=== PATIENT | male | born 1980 | race Caucasian/White ===

== ENCOUNTER 2022-08-24 17:45 | Emergency (ER) | payer OTHER ==
[2022-08-24 18:06] VITALS: BP 111/72
--- NOTE | 2022-08-24 19:36 | ED Physician Documentation ---
PD HPI HEENT - Stated complaint Stated Complaint: R EYE PX - Chief complaint Chief Complaint: Heent - History obtained from History obtained from: Patient - Additional information Additional information: The patient comes to the emergency department chief complaint of onset of foreign body sensation in his right eye several hours ago while at work. The patient states that he is not sure what exactly gotten there, because it did not Begin distinctly but gradually came up. The patient states he was sanding wood but also had to try to pry the nail out and states that may be a metal shaving or chip could have flown into his eye from that. The patient denies any visual changes. He does not wear contact lenses. He was wearing safety glasses while sanding. Review of Systems Ten Systems: 10 systems reviewed and negative Constitutional: reports: Reviewed and negative Eyes: reports: Photophobia, Discharge, Irritation. denies: Loss of vision, Decreased vision Ears: reports: Reviewed and negative Nose: reports: Reviewed and negative Throat: reports: Reviewed and negative Cardiac: reports: Reviewed and negative Respiratory: reports: Reviewed and negative GI: reports: Reviewed and negative : reports: Reviewed and negative Skin: reports: Reviewed and negative Musculoskeletal: reports: Reviewed and negative Neurologic: reports: Reviewed and negative Psychiatric: reports: Reviewed and negative Endocrine: reports: Reviewed and negative Immunocompromised: reports: Reviewed and negative PD PAST MEDICAL HISTORY - Past Medical History Cardiovascular: None Respiratory: None Endocrine/Autoimmune: None - Past Surgical History Past Surgical History: No - Present Medications Home Medications: Ambulatory Orders Medication Instructions Recorded Confirmed Loperamide HCl [Anti-Diarrheal] 2 mg PO Q6H PRN #20 capsule 09/18/15 ondansetron HCL [Zofran] 4 mg PO Q6H PRN #20 tablet 09/18/15 Gentamicin 0.3% Ophth Drops 1 drops OPTH BID #5 ml 08/24/22 [Garamycin] - Allergies Allergies/Adverse Reactions: Allergies Allergy/AdvReac Type Severity Reaction Status Date / Time No Known Drug Allergies Allergy Verified 08/24/22 18:06 - Social History Does the pt smoke?: No Smoking Status: Never smoker Does the pt drink ETOH?: No Does the pt have substance abuse?: No - Immunizations Immunizations are current?: Yes PD ED PE NORMAL - Vitals Vital signs reviewed: Yes - General General: Alert and oriented X 3, No acute distress, Well developed/nourished - HEENT HEENT: Atraumatic, PERRL, EOMI, Other (corneal abrasion 5:00-6:00 position R eye; No foreign body. Lids everted for exam. Fluorescein and magnification used.) - Neck Neck: Supple, no meningeal sign - Respiratory Respiratory: No respiratory distress - Derm Derm: Normal color, Warm and dry, No rash - Extremities Extremities: No deformity - Neuro Neuro: Alert and oriented X 3 - Psych Psych: Normal mood, Normal affect Results - Vitals Vitals: Oxygen O2 Source Room air PD MEDICAL DECISION MAKING - ED course Complexity details: considered differential, d/w patient ED course: I discussed with the patient that despite thorough examination, I find no evidence of a foreign body at this time. There is a small corneal abrasion that is confined to the 5 to 6 o'clock position over the patient's right upper. This does not overlie the aperture of the pupil. I have given the patient a prescription for antibiotic drops. We have discussed home management of the symptoms, as well as usual indications for follow-up and return. Departure - Departure Disposition: 01 Home, Self Care Clinical Impression: Corneal abrasion, right Qualifiers: Encounter type: initial encounter Qualified Code(s): S05.01XA - Injury of conjunctiva and corneal abrasion without foreign body, right eye, initial encounter Condition: Stable Instructions: ED Eye Injury Corneal Abrasion Prescriptions: Gentamicin 0.3% Ophth Drops [Garamycin] 1 drops OPTH BID #5 ml Comments: No foreign body was found in your eye tonight; however, you do have an abrasion on your cornea, the sensitive membrane which overlies the iris, or colored part of your eye. Please take the eye drops as directed. Your symptoms should gradually improve over the next several days. Discharge Date/Time: 08/24/22 19:39
== END 2022-08-24 19:39 | disposition home or self-care (01) ==
LOC: ED 17:45
DX: S05.01XA Injury of conjunctiva and corneal abrasion without foreign body, right eye, initial encounter (principal); X58.XXXA Exposure to other specified factors, initial encounter; Y93.H3 Activity, building and construction; Y99.0 Civilian activity done for income or pay
CPT/HCPCS: 99282